=== PATIENT | male | born 2000 | race African-American/Black ===

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

== ENCOUNTER 2023-03-15 08:26 | Emergency (ER) | payer OTHER ==
[2023-03-15 08:33] VITALS: BP 116/69; PULSE 103; RESP 20; TEMP 98.4; BMI 32.1
[2023-03-15] MEDS ORDERED: BISMUTH SUBSALICYLATE 524 MG/30 ML PO ONE (09:12)
[2023-03-15] MEDS ORDERED: ACETAMINOPHEN 325 MG TABLET (FP) PO ONE (09:14)
== END 2023-03-15 10:42 | disposition home or self-care (01) ==
LOC: JER 08:26
DX: R51.9 Headache, unspecified (principal); R05.9 Cough, unspecified; J10.1 Influenza due to other identified influenza virus with other respiratory manifestations; Z20.822 Contact with and (suspected) exposure to COVID-19
CPT/HCPCS: 0241U-QW; 99283-25